=== PATIENT | male | born 1950 | race Caucasian/White ===

== ENCOUNTER 2021-01-10 08:18 | Outpatient (REF) | payer MEDICARE, BC, SELFPAY ==
[2021-01-10 10:50] LABS: MANUAL DIFF FLAG NO
[2021-01-10 10:52] LABS: Basophils Percent Auto 0.5 % (0-2); Eosinophils Absolute Auto 0.4 X10*3/uL (0.0-0.4); Eosinophils Percent Auto 6.9 % (0-4); Hematocrit 45.4 % (42.0-52.0); Hemoglobin 15.5 g/dl (14.0-18.0); Imm Gran Abs Auto 0.03 X10*3/uL (0.00-0.03); Imm Gran Pct Auto 0.5 % (0.0-0.4); Lymphocytes Absolute Auto 1.5 X10*3/uL (1.2-4.9); Lymphocytes Percent Auto 26.3 % (20-40); Mean Corpuscular HGB Conc 34.1 g/dl (31.0-36.0); Mean Corpuscular Hemoglobin 29.8 pg (27.0-33.0); Mean Corpuscular Volume 87.1 fL (80.0-98.0); Mean Platelet Volume 9.9 fL (9.4-12.4); Monocytes Absolute Auto 0.7 X10*3/uL (0.1-1.2); Neutrophils Percent Auto 53.8 % (45-73); Platelet Count 241 X10*3/uL (160-400); Red Blood Count 5.21 X10*6/uL (4.60-5.80); Red Cell Distribution Width 13.3 % (11.0-16.0); White Blood Count 5.8 X10*3/uL (4.8-10.8)
[2021-01-10 11:28] LABS: Alanine Aminotransferase 17 U/L (0-40); Albumin Level 4.1 g/dL (3.5-5.0); Alkaline Phosphatase 84 U/L (39-117); Anion Gap 12 (12-20); Aspartate Amino Transferase 19 U/L (5-37); Bilirubin Total 0.6 mg/dL (0.0-1.0); Blood Urea Nitrogen 11 mg/dL (9-16); Calcium 8.8 mg/dL (8.4-10.2); Carbon Dioxide 26 mmol/L (22-29); Chloride 106 mmol/L (96-108); Cholesterol 165 mg/dL; Estimated Glomerular Filt Rate > 60; Glucose Fasting 97 mg/dL (60-99); HDL Cholesterol 43 mg/dL; LDL Cholesterol Calculated 109 mg/dl; Potassium 4.6 mmol/L (3.3-5.1); Sodium 139 mmol/L (135-145); Total Protein 6.3 g/dL (6.5-8.0); Triglycerides 65 mg/dL
== END 2021-01-10 08:19 | disposition home or self-care (01) ==
LOC: HO.MANLDS 08:18
PROVIDERS: PCP Physician Assistant; Visit Provider Physician Assistant
DX: Z00.00 Encounter for general adult medical examination without abnormal findings (principal)
CPT/HCPCS: 36415; 80053; 80061; 85025

== ENCOUNTER 2021-12-19 14:22 | Outpatient (REF) | payer MEDICARE, BC, SELFPAY ==
[2021-12-19 18:19] LABS: MANUAL DIFF FLAG NO
[2021-12-19 18:38] LABS: Alanine Aminotransferase 15 U/L (0-40); Albumin Level 4.1 g/dL (3.5-5.0); Alkaline Phosphatase 80 U/L (39-117); Anion Gap 15 (12-20); Aspartate Amino Transferase 18 U/L (5-37); Bilirubin Total 0.7 mg/dL (0.0-1.0); Blood Urea Nitrogen 14 mg/dL (9-16); Calcium 9.6 mg/dL (8.4-10.2); Carbon Dioxide 24 mmol/L (22-29); Chloride 105 mmol/L (96-108); Cholesterol 175 mg/dL; Estimated Glomerular Filt Rate > 60; Glucose Random 130 mg/dL (60-115); HDL Cholesterol 44 mg/dL; LDL Cholesterol Calculated 102 mg/dl; Potassium 4.1 mmol/L (3.3-5.1); Sodium 140 mmol/L (135-145); Total Protein 6.4 g/dL (6.5-8.0); Triglycerides 147 mg/dL
[2021-12-19 18:40] LABS: Basophils Absolute Auto 0.1 X10*3/uL (0.0-0.2); Basophils Percent Auto 0.7 % (0-2); Eosinophils Absolute Auto 0.1 X10*3/uL (0.0-0.4); Eosinophils Percent Auto 1.8 % (0-4); Hematocrit 45.6 % (42.0-52.0); Hemoglobin 15.8 g/dl (14.0-18.0); Imm Gran Abs Auto 0.07 X10*3/uL (0.00-0.03); Lymphocytes Absolute Auto 1.4 X10*3/uL (1.2-4.9); Lymphocytes Percent Auto 19.6 % (20-40); Mean Corpuscular HGB Conc 34.6 g/dl (31.0-36.0); Mean Corpuscular Hemoglobin 29.3 pg (27.0-33.0); Mean Corpuscular Volume 84.6 fL (80.0-98.0); Mean Platelet Volume 11.2 fL (9.4-12.4); Monocytes Absolute Auto 0.5 X10*3/uL (0.1-1.2); Monocytes Percent Auto 7.1 % (2-11); Neutrophils Absolute Auto 5.1 x10*3/uL (2.0-8.3); Neutrophils Percent Auto 69.8 % (45-73); Platelet Count 237 X10*3/uL (160-400); Red Blood Count 5.39 X10*6/uL (4.60-5.80); Red Cell Distribution Width 12.8 % (11.0-16.0); White Blood Count 7.4 X10*3/uL (4.8-10.8)
== END 2021-12-19 14:23 | disposition home or self-care (01) ==
LOC: HO.MANLDS 14:22
PROVIDERS: Internal Medicine; Visit Provider Physician Assistant
DX: Z00.00 Encounter for general adult medical examination without abnormal findings (principal)
CPT/HCPCS: 36415; 80053; 80061; 85025

== ENCOUNTER 2023-01-22 08:10 | Outpatient (REF) | payer MEDICARE, BC, SELFPAY ==
[2023-01-22 13:39] LABS: MANUAL DIFF FLAG NO
[2023-01-22 13:53] LABS: Basophils Absolute Auto 0.1 X10*3/uL (0.0-0.2); Basophils Percent Auto 0.8 % (0-2); Eosinophils Absolute Auto 0.4 X10*3/uL (0.0-0.4); Eosinophils Percent Auto 5.9 % (0-4); Hematocrit 42.3 % (42.0-52.0); Hemoglobin 13.5 g/dl (14.0-18.0); Imm Gran Abs Auto 0.03 X10*3/uL (0.00-0.03); Imm Gran Pct Auto 0.5 % (0.0-0.4); Lymphocytes Absolute Auto 1.6 X10*3/uL (1.2-4.9); Lymphocytes Percent Auto 25.5 % (20-40); Mean Corpuscular HGB Conc 31.9 g/dl (31.0-36.0); Mean Corpuscular Volume 81.3 fL (80.0-98.0); Mean Platelet Volume 10.7 fL (9.4-12.4); Monocytes Absolute Auto 0.7 X10*3/uL (0.1-1.2); Monocytes Percent Auto 10.5 % (2-11); Neutrophils Absolute Auto 3.6 x10*3/uL (2.0-8.3); Neutrophils Percent Auto 56.8 % (45-73); Platelet Count 303 X10*3/uL (160-400); Red Cell Distribution Width 13.5 % (11.0-16.0); White Blood Count 6.3 X10*3/uL (4.8-10.8)
[2023-01-22 14:30] LABS: Alanine Aminotransferase 12 U/L (0-40); Alkaline Phosphatase 67 U/L (39-117); Anion Gap 9 (12-20); Aspartate Amino Transferase 19 U/L (5-37); Bilirubin Total 0.5 mg/dL (0.0-1.0); Blood Urea Nitrogen 13 mg/dL (9-16); Calcium 9.5 mg/dL (8.4-10.2); Carbon Dioxide 28 mmol/L (22-29); Chloride 105 mmol/L (96-108); Cholesterol 175 mg/dL (<200); Estimated Glomerular Filt Rate > 60; Ferritin 13 ng/mL (20-250); Glucose Random 100 mg/dL (60-115); HDL Cholesterol 46 mg/dL (>40); Iron 42 mcg/dL (45-160); LDL Cholesterol Calculated 107 mg/dL (<100); Percent Iron Saturation 11 % (15-50); Sodium 138 mmol/L (135-145); Total Iron Binding Capacity 375 mcg/dL (228-428); Total Protein 6.7 g/dL (6.5-8.0); Triglycerides 113 mg/dL (<150); Unsaturated Iron Binding 333 ug/dL
[2023-01-22 14:48] LABS: Folate 8.5 ng/mL (> or = 4.0); Prostate Specific Antigen 1.25 ng/mL (<0.05-4.0); Vitamin B12 442 pg/mL (200-900)
== END 2023-01-22 08:11 | disposition home or self-care (01) ==
LOC: HO.MANLDS 08:10
PROVIDERS: Visit Provider Physician Assistant
DX: Z00.00 Encounter for general adult medical examination without abnormal findings (principal); Z12.5 Encounter for screening for malignant neoplasm of prostate; R55 Syncope and collapse
CPT/HCPCS: 36415; 80053; 80061; 82607; 82728; 82746; 83540; 84153; 85025

== ENCOUNTER 2023-04-15 15:19 | Outpatient (REF) | payer MEDICARE, BC, SELFPAY | END 2023-04-15 15:20 | disposition home or self-care (01) | LOC: HO.LNP 15:19 | PROVIDERS: Visit Provider Physician Assistant | DX: K13.79 Other lesions of oral mucosa (principal) | CPT/HCPCS: 87070; 87205 ==

== ENCOUNTER 2024-01-31 08:32 | Outpatient (REF) | payer MEDICARE, BC, SELFPAY ==
[2024-01-31 13:07] LABS: MANUAL DIFF FLAG NO
[2024-01-31 13:18] LABS: Basophils Absolute Auto 0.1 X10*3/uL (0.0-0.2); Basophils Percent Auto 0.8 % (0-2); Eosinophils Absolute Auto 0.9 X10*3/uL (0.0-0.4); Eosinophils Percent Auto 13.1 % (0-4); Hemoglobin 16.4 g/dl (14.0-18.0); Imm Gran Abs Auto 0.03 X10*3/uL (0.00-0.03); Imm Gran Pct Auto 0.5 % (0.0-0.4); Lymphocytes Absolute Auto 1.4 X10*3/uL (1.2-4.9); Lymphocytes Percent Auto 21.1 % (20-40); Mean Corpuscular HGB Conc 34.9 g/dl (31.0-36.0); Mean Corpuscular Volume 85.9 fL (80.0-98.0); Mean Platelet Volume 10.2 fL (9.4-12.4); Monocytes Absolute Auto 0.7 X10*3/uL (0.1-1.2); Monocytes Percent Auto 10.2 % (2-11); Neutrophils Absolute Auto 3.5 x10*3/uL (2.0-8.3); Neutrophils Percent Auto 54.3 % (45-73); Platelet Count 204 X10*3/uL (160-400); Red Blood Count 5.47 X10*6/uL (4.60-5.80); Red Cell Distribution Width 12.8 % (11.0-16.0); White Blood Count 6.5 X10*3/uL (4.8-10.8)
[2024-01-31 13:32] LABS: Estimated Average Glucose 120 mg/dL; Hemoglobin A1C 165.1221 umol/L; Hemoglobin A1c % 5.8 % (<6.0); Total Hemoglobin (HGBA1C) 4176.8867 umol/L
[2024-01-31 13:40] LABS: Alanine Aminotransferase 22 U/L (0-40); Albumin Level 4.1 g/dL (3.5-5.0); Anion Gap 11 (12-20); Aspartate Amino Transferase 26 U/L (5-37); Bilirubin Total 0.9 mg/dL (0.0-1.0); Blood Urea Nitrogen 11 mg/dL (9-16); Calcium 9.6 mg/dL (8.4-10.2); Carbon Dioxide 26 mmol/L (22-29); Chloride 105 mmol/L (96-108); Cholesterol 170 mg/dL (<200); Estimated Glomerular Filt Rate > 60; Glucose Random 112 mg/dL (60-115); HDL Cholesterol 41 mg/dL (>40); Sodium 138 mmol/L (135-145); Total Protein 6.5 g/dL (6.5-8.0); Triglycerides 123 mg/dL (<150)
[2024-01-31 13:41] LABS: Alkaline Phosphatase 73 U/L (39-117); LDL Cholesterol Calculated 105 mg/dL (<100)
[2024-01-31 13:48] LABS: Prostate Specific Antigen 0.74 ng/mL (<0.05-4.0)
== END 2024-01-31 08:33 | disposition home or self-care (01) ==
LOC: HO.MANLDS 08:32
PROVIDERS: Visit Provider Physician Assistant
DX: Z00.00 Encounter for general adult medical examination without abnormal findings (principal)
CPT/HCPCS: 36415; 80053; 80061; 83036; 84153; 85025

== ENCOUNTER 2025-02-12 09:04 | Outpatient (REF) | payer MEDICARE, BC, SELFPAY ==
--- OUTSIDE RECORDS SUMMARY | 2025-02-12 09:40 | XMS_ITS | Encounter Summary ---
Author Organization [facility] Address [address] [place] [address] [place] [address] Phone Care Team Providers Care Cashiers Bussers Food Runners Name Role Phone Reji Paul DO Primary Care Provider [phone] Encounter Details Date Type Department Care Team (Latest Contact Info) Description 09/22/2019 Transcribe Orders [address] [address] Elias Hendrickson MD [address] [place] [address], [address] [address] [email or web address] Nodular prostate without urinary obstruction (Primary Dx) Social History Tobacco Use Types Packs/Day Years Used Date Smoking Tobacco: Never Smokeless Tobacco: Never Sex and Gender Information Value Date Recorded Sex Assigned at Not on file Legal Sex Male 9:59 PM EDT Gender Identity Not on file Sexual Orientation Not on file documented as of this encounter Plan of Treatment Upcoming Encounters Date Type Department Care Team (Late st Contact Info) Description 03/18/2025 2:00 PM EST Office Visit [facility] [address] [place] [address] Unknown, Unknown, Caridad Jensen PA-C [address] [id number] documented as of this encounter Results * PSA (screening) (09/22/2019 9:08 AM EDT) PSA 1.01 0 - 4.00 ng/mL [facility] Blood 09/22/2019 9:08 AM EDT 09/22/2019 12:01 PM EDT us Elias Hendrickson MD LAB BLOOD BKR ORDERABLES Final Result Performing Organization Address City/State/[facility] Co de Phone Number [facility] [address] [place] [address] documented in this encounter Visit Diagnoses Diagnosis Nodular prostate without urinary obstruction- Primary documented in this encounter Care Teams Cashiers Bussers Food Runners Relationship Specialty Start Date End Date Reji Paul DO [email or web address] PCP - General Internal Medicine 12/19/18 documented as of this encounter Additional Source Comments The information contained in this document represents components of the legal health record. It is not the complete legal health record.[facility]
--- OUTSIDE RECORDS SUMMARY | 2025-02-12 09:40 | XMS_ITS | Encounter Summary ---
Author Organization [facility] Address [address] [place] [address] Phone Care Team Providers Care Laborer Orchard Name Role Phone Reji Paul DO Primary Care Provider [phone] Encounter Details Date Type Department Care Team (Latest Contact Info) Description 05/11/2021 Ancillary Orders Non-Invasive Cardiology [address] [place] [address] Tricia Maynard PA 6 [facility] [place] [address] Abnormal cardiovascular stress test Social History Tobacco Use Types Packs/Day Years [...] Description 03/18/2025 2:00 PM EST Office Visit [facility] [address] [place] [address] Unknown, Unknown, Caridad Jensen PA-C [address] [address] documented as of this encounter Results * NC Stress Result for Nuclear Stress Test (05/11/2021 11:25 AM EST) Max BP Systolic 184 mmHg [facility] Max BP Diastolic 66 mmHg [facility] Max HR 122 BPM [facility] Resting HR 61 BPM [facility] Resting BP Systolic 152 mmHg [facility] Resting BP Diastolic 70 mmHg [facility] Peak METS 7.4 METS [facility] Peak HR 120 BPM [facility] Anatomical Region Laterality Modality Heart Other 05/11/2021 10:3 3 AM EST 05/11/2021 11:23 AM EST Narrative 05/11/2021 11:52 AM EST Response to Stress The patient exercised for minutes seconds, achieving 7.4 METS at peak exercise. Baseline blood pressure was 152/70 mmHg, and baseline heart rate was 61 bpm. The patient achieved a peak heart rate of 120 bpm, which is% of their maximum predicted heart rate. Report: Pt exercised for 11:06 min on a KEATON protocol achieving 13.10 METS. Test terminated due to fatigue. Baseline resting HR was 57 bpm. Max heart rate achieved was 122 bpm (80% MPHR). Patient did not want Lexiscan that was recommended and ordered as he was not able to meet MPHR at his ETT. Did regular Nuke per patient request only made it to 80% before injection. 1. EKG - Baseline EKG showed sinus bradycardia 57 bpm with non-specific ST/T wave abnormalities and LVH. During exercise, there were up to 1.[address]-T wave depressions in the inferolateral leads and V4-V6 suggestive of ischemia. 2. SYMPTOMS - No chest pain. 3. EXERCISE PHYSIOLOGY - Normal BP response to exercise. High functional capacity for age. 4. ARRHYTHMIAS - Occasional isolated PVC's. Conclusion - There were up to 1.[address]-T wave depressions in the inferolateral leads and V4-V6 suggestive of ischemia without symptoms concerning for angina. Nuclear images pending and will be reported separately. Naz Marcelo, SELIN, SALES ASSOCIATE-BC with Dr. Rodríguez. us Tricia REILLY CV NM CARDIAC Final Resul t documented in this encounter Visit Diagnoses Diagnosis Abnormal cardiovascular stress test Other nonspecific abnormal cardiovascular system function study Abnormal cardiovascular stress test Other nonspecific abnormal cardiovascular system function study documented in this encounter Care Teams Laborer Orchard Relationship Specialty Start Date End Date Reji Paul DO [email or web address] PCP - General Internal Medicine 12/19/18 documented as of this encounter Additional Source Comments The information contained in this document represents components of the legal health record. It is not the complete legal health record.[facility]
--- OUTSIDE RECORDS SUMMARY | 2025-02-12 09:40 | XMS_ITS | Encounter Summary ---
Author Organization [facility] Address [address] [place] [address] [place] [phone] Phone Care Team Providers Care Air Traffic Control Operator Name Role Phone Reji Paul Primary Care Provider [phone] Reason for Referral * MRI/CAT Scan - Closed Specialty Diagnoses / Procedures Referred By Contjose t Referred To Contact Radiology Diagnoses Abnormal cardiovascular stress test Procedures NC Myocardial Perfusion Pharmacologic Stress Multiple Tricia Maynard PA Phone: tel: fax: Referral ID Status Reason Start Date Expiration Date Visits Re quested Visits Authorized [id number] Closed 04/28/2021 04/28/2022 4 4 Encounter Details Date Type Department Care Team (Latest Contact Info) Description 04/28/2021 Transcribe Orders Virtual Department [address] [place] [address] Tricia Maynard PA [address] [place] [address] [place] [address] Abnormal cardiovascular stress test (Primary Dx) Social History Tobacco Use Types [...] Description 03/18/2025 2:00 PM EST Office Visit [facility] [address] [place] [address] Unknown, Unknown, Caridad Jensen PA-C 10 [facility] [address] [place] [address] .[employer] documented as of this encounter Results * NC Myocardial Perfusion Pharmacologic Stress Multiple (05/11/2021 11:45 AM EST) Anatomical Region Laterality Modality Heart, Vascular Nuclear Medicine 05/11/2021 12:2 5 PM EST Impressions 05/11/2021 12:28 PM EST Suboptimal heart rate response decreasing exam sensitivity for detecting ischemia. Normal exam. LVEF of 73%. Narrative 05/11/2021 12:28 PM EST COMPARISON: None. DOSE: 9.5 mCi at rest and 30.4 mCi at stress of Tc99m Sestamibi TECHNIQUE: Patient underwent an exercise stress test per Abner protocol reaching 80% of MHR. Patient refused Lexiscan stress test. EKG changes were suggestive of ischemia. No chest pain. NUCLEAR MEDICINE CARDIAC SPECT FINDINGS: Left ventricle is normal in size from stress to rest. No perfusion defects. Normal wall motion and thickening with an LVEF of 73%. T.I.D. Ratio: 0.95 Procedure Note Meliton Palmer MD - 05/11/2021 COMPARISON: None. DOSE: 9.5 mCi at rest and 30.4 mCi at stress of Tc99m Sestamibi TECHNIQUE: Patient underwent an exercise stress test per Abner protocolreaching 80% of MHR. Patient refused Lexiscan stress test. EKG changeswere suggestive of ischemia. No chest pain. NUCLEAR MEDICINE CARDIAC SPECT FINDINGS: Left ventricle is normal in size from stress to rest. No perfusiondefects. Normal wall motion and thickening with an LVEF of 73%. T.I.D. Ratio: 0.95 IMPRESSION: Suboptimal heart rate response decreasing exam sensitivity for detectingischemia. Normal exam. LVEF of 73%. Tricia REILLY CV NM CARDIAC Final Resul t documented in this encounter Visit Diagnoses Diagnosis Abnormal cardiovascular stress test- Primary Other nonspecific abnormal cardiovascular system function study Abnormal cardiovascular stress test Other nonspecific abnormal cardiovascular system function study documented in this encounter Care Teams Air Traffic Control Operator Relationship Specialty Start Date End Date Reji Paul DO [email or web address] PCP - General Internal Medicine 12/19/18 documented as of this encounter Additional Source Comments The information contained in this document represents components of the legal health record. It is not the complete legal health record.[facility]
--- OUTSIDE RECORDS SUMMARY | 2025-02-12 09:41 | XMS_ITS | Data Portability ---
Author Organization [facility], Telehealth Patient Home Address [address] [place] [address] Assessment Encounter Date Assessment Date Assessment LastModified by Organization Details LastModified Time 08/05/2024 08/05/2024 Patient presented for medication refill. Patient tolerating medication well at current dose without adverse effects. Refilled as below. Discussed plan with patient, who expressed understanding . Follow up as noted below. [email or web address] Not available 08/05/2024 12:28:45 Plan of Treatment Reminders Order Date Submit Date Provider Last Modified By Organization Details Last Modified Time Details Appointments ANNUAL EXAM 2025 02:15P MELBA OLIVER Not available Not available Not available Lab PSA, serum or plasma 2024 025 [facility], [address] [place] [address], [id number], 01/29/2025 14:55:36 CMP, serum or plasma 2024 025 [facility], [address] [place] [address], [id number], 01/29/2025 14:55:37 CBC w/ auto diff 2024 025 [facility], [address] [place] [address], [id number], 01/29/2025 14:55:36 lipid panel, blood 2024 025 [facility], [address] [place] [address], [id number], 01/29/2025 14:55:37 hemoglobi n A1c, QN, blood 2024 025 [facility], [address] [place] [address], [place], [id number], 01/29/2025 14:55:36 Referral None recorded. Procedures None recorded. Surgeries None recorded. Imaging None recorded. Medication Orders triamcino lone acetonide 0.1 % topical cream 2024 025 [facility][id number], [address], [place], [id number], 10/19/2024 10:54:23 olmesarta n 20 mg tablet 2024 025 [facility] #[id number], [address], [place], [id number], 08/19/2024 14:48:06 olmesarta n 20 mg tablet 2024 025 [facility] #[id number], [address], [place], [id number], 08/05/2024 12:38:57 Patient TargetsNo targets recorded. Patient InstructionsNo instructions recorded. Reason for Referral None Reported. Results Created Date Observation Date Name Description Value Unit Range Abnormal Flag Note LastModifiedBy Organization Detail LastModifiedTime Result Notes None recorded. Problems Name Problem SNOMED Code Status Onset Date Resolution Date Notes Provider Name and Address Organization Details Recorded Time [facility] hyperten phillip 77179712 Active 2017 Not Available [facility] 12:46:22 Impotenc e Active 2017 Not Available [facility] 12:46:22 Mixed hyperlip idemia 616406644 Active 2017 Not Available [facility] 12:46:22 Prostate nodule 59675998866 9109 Active 2017 saw urology 3mm L medial lobe needs PSA every year to monitor MELBA EDWARDS [address] [place], [address], [facility] 2 13:58:39 Systolic murmur 67936273 Active 2017 Per cardio 2 RICS to LSB Not Available [facility] 2 12:46:22 Migraine 43450379 Active 2017 1982 Not Available [facility] 2 12:46:22 Hemorrho ids 21960910 Active 2017 Not Available [facility] 2 12:46:22 Herpes zoster 8929911 Active 2017 1998 Not Available [facility] 2 12:46:22 Pneumoni a 069999129 Active 2017 1970 Not Available [facility] 2 12:46:22 Gastroes ophageal reflux disease 973488739 Active 2021 MELBA EDWARDS [address] [place], [address], [facility] 2 13:54:54 Multiple benign melanocy tic nevi 789478397 Active 2022 MELBA EDWARDS [address] [place], [address], [facility] 3 13:54:42 Syncope 354352762 Active 2022 MELBA EDWARDS [address] [place], [address], [facility] 3 13:59:57 Sore mouth 935614059 Active 2023 MELBA EDWARDS [address] [place], [address], [facility] 4 12:07:41 Psoriasi s 9422351 Active 2023 MELBA EDWARDS [address] [place], [address], [facility] 4 14:09:06 Contact dermatit is caused by urushiol from [facility] liz 488184832 Active 2023 MELBA EDWARDS [address] [place] [address], [address], [facility] 4 11:27:16 Generali kyle rudy 946334006 Active 2023 MELBA EDWARDS [address] [place] [address], [address], [facility] 4 12:03:37 Pseudomo wayne aerugino sa follicul itis 197171015 Active 2023 MELBA EDWARDS [address] [place] [address], [address], [facility] 4 14:20:14 Hidraden itis suppurat niesha 47294473 Active 2023 MELBA EDWARDS [address] [place] [address], [address], [facility] 4 14:21:49 Gastro-e sophagea l reflux disease with esophagi tis 623136207 Active 2024 MELBA EDWARDS [address] [place] [address], [address], [facility] 5 14:57:09 Chronic constipa tion 866990190 Active 2024 MELBA EDWARDS [address] [place] [address], [address], [facility] 5 10:51:44 Seborrhe ic keratosi s 091018713 Active 2024 MELBA EDWARDS [address] [place] [address], [address], [facility] 5 10:52:26 Notes:Exertional abgina Problem Notes None recorded. Procedures Surgical History Date Name Laterality Status Provider Name and Address Organization Details Recorded Time 11/01/19 16 colonoscopic snare polypectomy of colon completed Adelia Foy [facility] 06/13/2018 12:24:32 11/01/19 16 Colonoscopy completed Adelia Foy [facility] 06/13/2018 12:22:42 Imaging Results None recorded. Procedure Notes None recorded. Medical Equipment None Reported. Allergies Allergen ID Allergen Name Allergen Category Reaction Reaction Severity Criticality Documentation Date Start Date Code Code System Note Provider Name and Address Organization Details Recorded Time 2175 lisinopri l medicatio n Not available Not available Not available 11/01/2017 67933 RxNorm Adelia kearney [facility] 8 08:20:35 2176 Product containin g penicilli n (product) medicatio n Not available Not available Not available 11/01/2017 47874 8001 SNOMED Adelia kearney [facility] 8 08:20:42 Medications Name Sig Start Date Stop Date Status Note LastModified by Organization Details LastModified Time nystatin 100,000 unit/mL oral suspension SHAKE LIQUID AND TAKE 5 ML BY MOUTH FOUR TIMES DAILY FOR 7 DAYS DIRECTED 07/01 completed Not Available Not Available Not Available prednisone 10 mg tablet TAKE 4 TABLETS BY MOUTH ONCE DAILY X2DAYS TAKE 3 TABLETS DAILY X2DAYS 2 TABLETS DAILY X2DAYS 1 TABLET DAILY X2DAYS 12/26 completed Not Available Not Available Not Available azithromyci n 250 mg tablet TAKE 2 TABLETS (500 MG) BY ORAL ROUTE ONCE DAILY FOR 1 DAY THEN 1 TABLET (250 MG) BY ORAL ROUTE ONCE DAILY FOR 4 DAYS 06/04 completed Not Available Not Available Not Available tizanidine 4 mg tablet TAKE 1 TABLET BY MOUTH EVERY 6 HOURS FOR 14 DAYS NEEDED 01/09 completed Not Available Not Available Not Available famotidine 40 mg tablet TAKE 1 TABLET BY MOUTH DAILY AT BEDTIME active Not Available Not Available No t Available prednisone 20 mg tablet Take 1 tablet every day by oral route for 14 days. 08/05 completed Not Available Not Available Not Available clobetasol 0.05 % topical cream APPLY TOPICALLY TO THE AFFECTED AREA TWICE DAILY FOR 1 TO 2 WEEKS NEEDED FOR ECZEMA. DO NOT USE ON THE FACE OR SKIN FOLDS active Not Available Not Available No t Available ciprofloxac in 500 mg tablet TAKE 1 TABLET BY MOUTH EVERY 12 HOURS FOR 10 DAYS DIRECTED 01/26 completed Not Available Not Available Not Available triamcinolo ne acetonide 0.1 % topical cream APPLY THIN LAYER TOPICALLY TO THE AFFECTED AREA TWICE DAILY active Not Available Not Available No t Available benzonatate 100 mg capsule 08/17 completed Not Available Not Available Not Available doxycycline monohydrate 100 mg capsule TAKE 2 CAPSULES BY MOUTH ONCE FOR 1 DOSE. MAY TAKE AN ADDITIONA L 2 CAPSULES BY MOUTH ONCE FOR 1 DOSE FOR ADDITIONA L TICK BITES IN THE FUTURE 12/26 completed Not Available Not Available Not Available erythromyci n 5 mg/gram (0.5 %) eye ointment 08/17 completed Not Available Not Available Not Available tobramycin 0.3 % eye drops INSTILL 1 DROP IN EACH EYE EVERY 4 HOURS 07/01 completed Not Available Not Available Not Available Guaifenesin AC 10 mg-100 mg/5 mL oral liquid Take 10 mL every 4 hours by oral route for 5 days. 08/17 completed Not Available Not Available Not Available omeprazole 20 mg capsule,del ayed release TAKE 1 CAPSULE BY MOUTH EVERY DAY 08/05 completed Not Available Not Available Not Available bisacodyl 5 mg tablet,cruzito yed release TAKE 4 TABLETS BY MOUTH THE DAY BEFORE PROCEDURE 08/05 completed Not Available Not Available Not Available albuterol sulfate HFA 90 mcg/actuati on aerosol inhaler Inhale 2 puffs every 4 hours by inhalatio n route. 08/17 completed Not Available Not Available Not Available olmesartan 20 mg tablet TAKE 2 TABLETS BY MOUTH EVERY DAY DIRECTED active Not Available Not Available No t Available IBU-200 2 tablets 2 or 3 times a day 06/28 completed Not Available Not Available Not Available potassium qd active Not Available Not Marah ilable Not Available Vitamin D3 active Not Available Not Av ailable Not Available B6-500 09/16 completed Not Available Not Available Not Available GaviLyte-G 236 gram-22.74 gram-6.74 gram-5.86 gram oral solution MIX AND DRINK 4000 ML DIRECTED 08/05 completed Not Available Not Available Not Available Prevnar 13 (PF) 0.5 mL intramuscul ar syringe 11/01 completed Not Available Not Available Not Available Antiseptic Skin Cleanser (chlorhexid ine) 4 % liquid APPLY TOPICALLY TO THE AFFECTED AREA EVERY DAY FOR 10 DAYS DIRECTED 08/05 completed Not Available Not Available Not Available Calcium Magnesium with zinc active Not Available Not Available Not Available Shingrix (PF) 50 mcg/0.5 mL intramuscul ar suspension, kit 11/01 completed Not Available Not Available Not Available Fluzone High-Dose 8921-9511 (PF) 180 mcg/0.5 mL intramuscul ar syringe 06/16 completed Not Available Not Available Not Available Fluad 2018-20 65yr up(PF)45 mcg(15 mcgx3)/0.5 mL intramuscul ar syringe 08/17 completed Not Available Not Available Not Available Fluzone High-Dose Quad 2019- (PF) 240 mcg/0.7 mL IM syringe ADM 0.7ML IM UTD 06/28 completed Not Available Not Available Not Available BinaxNOW COVID-19 Ag Self Test kit TEST DIRECTED TODAY 07/01 completed Not Available Not Available Not Available Vitals Date Recorded Body height Body mass index (BMI) Body weight Heart rate Oxygen saturation Systolic And Diastolic Provider Name and Address Organization Details Last Updated DateTime 5 165.1 cm 24.9 kg/m2 24030.1 4 g 59 /min 95 % 132/82 mm[Hg] Kylee Helton [facility] 5 11:58:28 Date Recorded Body height Heart rate Oxygen saturation Systolic And Diastolic Provider Name and Address Organization Details Last Updated DateTime 08/19/2024 165.1 cm 60 /min 98 % 132/78 mm[Hg] Kylee Helton [facility] 08/19/2024 14:39:41 Date Recorded Body height Body mass index (BMI) Body weight Oxygen saturation Heart rate Systolic And Diastolic Provider Name and Address Organization Details Last Updated DateTime 5 165.1 cm 24.8 kg/m2 81600.9 8 g 98 % 74 /min 128/86 mm[Hg] IFEANYI AGARWAL [facility] 5 10:25:25 Date Recorded Body height Body mass index (BMI) Body weight Heart rate Oxygen saturation Systolic And Diastolic Provider Name and Address Organization Details Last Updated DateTime 5 165.1 cm 25.2 kg/m2 31879.9 6 g 55 /min 97 % 118/74 mm[Hg] Kylee Helton [facility] 5 10:39:45 Date Recorded Body height Body mass index (BMI) Body weight Oxygen saturation Heart rate Systolic And Diastolic Provider Name and Address Organization Details Last Updated DateTime 5 165.1 cm 25.3 kg/m2 56650.6 8 g 98 % 68 /min 122/72 mm[Hg] [facility] 5 14:26:06 Social History Question Answer Notes LastModified by Organizat ion Details LastModified Time Tobacco Smoking Status Never Smoker Not Available [facility] 01/12/2020 03:36:24 What Was The Date Of Your Most Recent Tobacco Screening? 01/29/2025 [email or web address] Information not available 01/29/2025 Sex: Unknown Functional Status None recorded. Mental Status None recorded. Family History Relationship Description Onset Age of this Age Resolved Age Notes LastModified by Organization Details LastModified Time Father Family history of malignant neoplasm Colon CA [email or web address] Not available 01/29/2025 14:02:11 Father Diabetes mellitus [email or web address] Not available 2018 12:19:38 Father Essential hypertension Not available 01/29/2025 14:02:11 Mother Family history of malignant neoplasm Breast CA [email or web address] Not available 01/29/2025 14:02:11 Mother Diabetes mellitus [email or web address] Not available 2018 12:19:38 Mother Essential hypertension [email or web address] Not available 01/29/2025 14:02:11 Medical History Condition Response Coronary Artery Disease N Other N Gout N Kidney Stones N Blood Diseases N Hyperthyroidism N Breast Cancer N Blood Transfusion N Depression N COPD N Lung Disease N Defects or Inherited Disease N Difficulty Swallowing N Anesthesia Complications N Anxiety Disorder N Muscle, Joint, or Bone Problems N Obesity N Vision or Eye Problems N Arthritis N Polyps N Infertility N Mental Disorder N Cancer N Varicosities N Stroke N Endometriosis N Bladder or Kidney Problems N High Cholesterol N Liver Disease N Headaches N Fibromyalgia N Kidney Disease N Allergies/Hayfever N Heart Problems N Hospitalizations N Thyroid Problems N GI Problems N Skin Problems N Eating Disorder N Anemia N MRSA exposure N Constipation N Mental Illness N Ovarian Cancer N Diabetes N Seizures/Epilepsy N Tuberculosis N Congestive Heart Failure (CHF) N Eczema N Diverticulitis N Abuse/Domestic Violence N Asthma N Reflux/GERD N Hepatitis N Heart Disease N Pulmonary Embolism N Hypertension N Chicken Pox Y Autism Spectrum Disorder (ASD) N Osteoporosis N Thrombophilias N Immunizations Vaccine Type Date Status Note Provider Nam e and Address Organization Details Recorded Time COVID-19, mRNA, LNP-S, PF, 30 mcg/0.3 mL dose 12/06/19 21 completed Not Available [facility] 02/12/2021 15:43:37 Influenza, split virus, quadrivalent, preservative 12/06/19 21 completed Not Available [facility] 02/12/2021 15:43:37 COVID-19, mRNA, LNP-S, PF, 30 mcg/0.3 mL dose 07/14/19 22 completed Ginette kearney [facility] 07/14/2021 14:17:35 Influenza, split virus, quadrivalent, preservative 12/25/19 18 completed Not Available [facility] 02/12/2021 15:43:37 Influenza, split virus, quadrivalent, preservative 11/21/19 22 completed Raven kearney [facility] 01/09/2022 13:39:19 COVID-19, mRNA, LNP-S, PF, 30 mcg/0.3 mL dose 12/26/19 22 completed Raven kearney [facility] 01/09/2022 13:39:50 Tdap 03/11/19 23 completed MELBA EDWARDS [address] [place] [address], [address] 01/16/2023 13:41:22 zoster live 06/06/19 18 completed Not Available [facility] 02/12/2021 15:43:37 Pneumococcal conjugate PCV 13 06/06/19 18 completed Not Available [facility] 02/12/2021 15:43:37 Influenza, split virus, quadrivalent, preservative 02/21/20 17 completed Not Available [facility] 02/12/2021 15:43:37 Td(adult) unspecified formulation 06/19/19 06 completed Not Available [facility] 02/12/2021 15:43:37 pneumococcal polysaccharide PPV23 06/15/19 19 completed Not Available [facility] 02/12/2021 15:43:37 Influenza, split virus, quadrivalent, preservative 12/31/19 19 completed Not Available [facility] 02/12/2021 15:43:37 Influenza, split virus, quadrivalent, preservative 12/11/19 20 completed Not Available [facility] 02/12/2021 15:43:37 COVID-19, mRNA, LNP-S, PF, 30 mcg/0.3 mL dose 05/14/19 21 completed Not Available [facility] 02/12/2021 15:43:37 COVID-19, mRNA, LNP-S, PF, 30 mcg/0.3 mL dose 04/22/19 21 completed Not Available [facility] 02/12/2021 15:43:37 Past Encounters Encounter ID Performer Location Encounter Start Date Encounter Closed Date Diagnosis/Indication Diagnosis SNOMED-CT Code Diagnosis ICD10 Code Diagnosis IMO Codes Diagnosis Note [id number] Reji Paul DO [facility] [address] [facility],[place] [address] 11/01/2017 13:26:28 11/01/2017 14:14:31 Acute low back pain 923500572 M54.5 right si joint ttp likely arthritis/ inflammati on NSAIDS, REST, ICE Essential hypertension 98027715 I10 stable with exercise routine [id number] Reji Paul DO [facility] [address] [facility],[place] [address] 06/16/2018 11:38:44 06/16/2018 12:48:47 Adult health examination 790977517 Z00.01 Active or passive immunization 861153400 Z23 up to date Prostate nodule 60001741 01 30840 N40.3 wait until Saturday for blood work Systolic murmur 95036042 R01.[place] [id number] Reji Paul DO [facility] [address] [facility],[place] [address] 12/09/2018 11:03:34 12/09/2018 11:21:54 Essential hypertension 32083496 I10 stable with exercise routine Systolic murmur 46931396 R01.1 very quiet Mixed hyperlipidemia 267 248530 E78.2 diet and exercise controlled Acute otitis media 71503 03 H66.91 perhaps very early will try azithro [id number] Reji Paul [facility] [address] [facility] [address] 04/14/2019 13:49:37 04/14/2019 14:11:49 Essential hypertension 94702330 I10 slightly elevated today Cough 29710252 R05 [id number] Reji Corona Paul [facility] [address] [facility] [address] 06/05/2019 11:42:35 06/05/2019 14:59:17 Contact dermatitis 59851102 L25.9 the pt was working in the [employer] and noticed afterwards he started developing a rash on his right hand that has since spread throughout his body will start on prednisone and see how he does [id number] Reji Paul [facility] [address] [facility] [address] 08/18/2019 11:37:43 08/18/2019 13:57:58 Adult health examination 873395815 Z00.00 no concerns today Active or passive immunization 139616309 Z23 no routine during pandemic [id number] Reji GrierMelinda Humberto [facility] [address] [facility] [address] 03/18/2020 13:40:52 03/18/2020 15:22:06 Gastroesophageal reflux disease 480656692 K21.9 sounds like GERD/gastr itis related causing his symptoms will start on bland diet and omeprazole and see if improvemen t after a week if no change will start with labs as we discussed Abdominal pain 41138913 R10.9 abd pain related to eating so sounds like a gastritis vs ulcer given his diet is high in acidity will cut out those components and see if he feels better Gastritis 7085096 K29.70 sounds like gastritis given symptoms will start on low acid diet and omeprazole if still happening may need to r/o ulcer [id number] Reji Paul [facility] [address] [facility] [address] 06/28/2020 15:28:21 06/28/2020 15:56:02 Contact dermatitis 71535582 L25.9 the pt was working in the [employer] and noticed afterwards he started developing a rash on his right arm and spreading to his left arm will start on prednisone and see how he does tolerates it well [id number] Reji Paul DO [facility] [address] [facility],[place] [address] 09/16/2020 15:43:43 09/16/2020 16:32:43 Pain of right shoulder joint 8833134538 7971361 M25.511 will take ibu as per my instructio ns Biceps tendinitis 574325 007 M75.21 [place] [id number] Reji Paul [facility] [address] [facility] [address] 12/27/2020 15:45:30 12/28/2020 08:40:31 Active or passive immunization 785726192 Z23 no routine during pandemic Adult heal th examination 612386728 Z00.00 no concerns today [id number] Reji Paul DO [facility] [address] [facility] [address] 04/18/2021 10:45:56 04/18/2021 14:30:59 Strain of neck muscle 603271982 S16.1XXA will trial OTC medication s and balms with prescripti on if needed Near syncope 668945196 R 55 ordered tests prior to this appt [id number] Reji Paul [facility] [address] [facility],[place] [address] 01/09/2022 13:26:48 01/09/2022 16:02:41 Adult health examination 572097423 Z00.00 no concerns todaywill let me know about seeing sleep medicine Gastroesop hageal reflux disease 759312173 K21.9 can trial omeprazole off for a few weeks to see if he still needs it Essential hypertension 56771505 I10 monitoring [id number] Reji Paul [facility] [address] [facility],[place] [address] 01/16/2023 13:24:35 01/16/2023 15:02:58 Adult health examination 627988757 Z00.00 no concerns todaywill let me know about seeing sleep medicine Multiple b enign melanocytic nevi 618277914 D22.5 will check his insurance Syncope 188678928 R55 will set up with lab work [id number] Reji Paul [facility] [address] [facility] [address] 04/15/2023 11:43:50 04/15/2023 15:39:22 Sore mouth 111348088 K13.79 will set up with nystatin swish and spit and send out wound culturewil l also have him switch his toothpaste that [id number] Reji Paul [facility] [address] [facility] [address] 07/02/2023 13:53:53 07/03/2023 09:16:31 Psoriasis 4364853 L40.8 will do a prednisone burstwill have him use triamcinol one for flare ups [id number] Reji Paul [facility] [address] [facility] [address] 10/14/2023 10:58:51 10/14/2023 12:00:00 Contact dermatitis caused by urushiol from [facility] liz 172069623 L23.7 will start on prednisone taper [id number] Reji Paul [facility] [address] [facility],[place] [address] 12/27/2023 13:53:31 12/27/2023 14:55:49 Depression screening 861962186 Z13.31 negative Pseudomona s aeruginosa folliculitis 304673534 B96.5 will start on cipro and with a hibiclens [id number] Reji Paul [facility] [address] [facility] [address] 01/27/2024 13:25:23 01/27/2024 14:52:38 Active or passive immunization 982732819 Z23 due for his flu shot and covid vaccine Adult [facility] th examination 239190932 Z00.00 no concerns todaywill let me know about seeing sleep medicine Depression screening 171 844757 Z13.31 negative [id number] Reji Paul [facility] [address] [facility] [address] 08/05/2024 11:50:29 08/05/2024 13:25:00 Renewal of prescription 215330510 Z76.0 stable Depression screening 171 504254 Z13.31 negative Essential hypertension 95661614 I10 restart low dose olmesartan [id number] Reji Paul [facility] [address] [facility],[place] [address] 08/19/2024 14:27:44 08/19/2024 15:44:10 Essential hypertension 06423062 I10 better home readingswi ll increase it to 30 mg, then 40 mg if still ranging in the 140-160sav erage around 130s/70s Gastro-eso phageal reflux disease with esophagitis 003041302 K21.00 5987580870 can trial omeprazole off for a few weeks to see if he still needs it [id number] Reji Paul [facility] [address] [facility],[place] [address] 09/02/2024 10:10:49 09/02/2024 16:05:21 Depression screening [id number] Z13.31 [id number] negative At low risk for fall 439 531927 Z91.81 [id number] low risk (score 0) Essential hypertension [id number] I10 BP excellent [id number] Reji Paul [facility] [address] [facility] [address],[place] [address] 10/19/2024 10:23:45 10/19/2024 11:12:04 Depression screening [id number] Z13.31 negative Chronic constipation 236 943451 K59.09 369111 recommende d miralax and fiber Seborrheic keratosis 394 197030 L82.1 136269 has his derm fu Psoriasis 6834472 L40.8 patch on the head and ankles [id number] Reji Paul [facility] [address] [facility] [address],[place] [address] 01/29/2025 14:02:05 01/29/2025 16:32:46 Depression screening [id number] Z13.31 negative General ex amination of patient 414068408 Z00.00 [id number] no concerns todaywill let me know about seeing sleep medicine Screening for malignant neoplasm of prostate 971737661 Z12.5 614000 Health Concerns Section Related Observation LastModified by Organization Detai ls LastModified Time None Recorded Concern Status LastModified by Organization Details LastModified Time None Recorded Advance Directives Directive None Recorded Payers Insurance Date Sequence Insurance Name Policy Number Policy Gonzalez Covered Member ID Gonzalez Member ID Guarantor Name 11/25/2017 2 [place] Shaan Sanofrd 01/26/2025 2 [place] 111 Shaan Sanford [id number] Shaan Sanford 01/26/2025 1 [place] [employer] Shaan Sanford [id number] Shaan Sanford Notes Date Note Type Note Provider Name a nd Address Organization Details Recorded Time 5 text/html ROS as noted in the HPI medication f/u the patient reports that he is having some blood pressure issuesthe patient had a colonoscopy and endoscopy last weekhis BP was 160/60 with first check according to patientthe patient reports that second reading was when he was unconscious, reading jumped up to 220/100 the patient denies chest pain, sob, headaches, vision changes, fever, chillsunusually high, typically has good BP in office around 120/80 - 130/80 the patient reports he has been on BP meds in the past, when he lived in the [place] area took some readings prior to his appt ranging around 130-150s/80srecommend ed restarting olmesartan 20 mg he was on previously which worked well for himlisinopril causes the dry cough in patient, cannot due ACEI meds GI is having patient elevated himself at bed time with a wedge otherwise MELBA EDWARDS [address] [facility], [place], [address], [facility] 08/05/2024 12:40:42 5 text/html ROS as noted in the HPI 2 week f/u HTN: today in the office the patient BP is 132/78 L arm sittingthe patient is doing well on the BP medication with no side effects and no adjustment of their medications needed today at the appointmentmike coley on medicationdenies chest pain, sob, ankle swelling, orthopnea, palpitations GERD: mild changes, inflammation, no medina's esophagus or precancerous findings on endoscopeneeds repeat colonoscopy in 7 years with [facility] GIrecommended PRN omeprazole 20 mg for flare ups and/or famotidine will increase to 30 mg and if needed bump up to 40 mgpatient has info to look into MELBA EDWARDS [address] [place], [address], [facility] 08/19/2024 14:57:25 5 text/html ROS as noted in the HPI f/u 2 week HTN: today in the office the patient BP is 128/86 L arm sitting the patient is doing well on the BP medication with no side effects and no adjustment of their medications needed today at the appointment well-controlled on medication denies chest pain, sob, ankle swelling, orthopnea, palpitations the patient is doing well on the medicationthe patient reports that he is not having side effects BP at home is also really well > 110-125/60-70s which is excellentno changes needed MELBA EDWARDS [address] [place], [address], [facility] 09/02/2024 10:51:34 5 text/html ROS as noted in the HPI f/u HTN HTN: today in the office the patient BP is 118/74 L arm sittingthe patient is doing well on the BP medication with no side effects and no adjustment of their medications needed today [facility] on medicationdenies chest pain, sob, ankle swelling, orthopnea, palpitations the patient has the Dermatology appt in Nov for the recurrent issues of rash, no effect with different topical treatmentsthe patient reports that he is having a mild flare upr.o dermatitis vs psoriasis constipation recommended miralax and fiber increasept will try this out and report back if this is effective MELBA EDWARDS [address] [place], [address], [facility] 10/19/2024 11:03:11 5 text/html Annual WellnessReported by PatientSocial/Behavio ral HistoryFor diet and nutrition, patient reportshealthy diet. For fracture risk, patient reportsno history of fractures,no recent explained fracture,no sudden unexplained fractures, andno previous musculoskeletal injuries. For physical activity, patient reportsexercises on a regular basis,recent increase in physical activity, andgood physical condition. For additional lifestyle factors, patient reportsno tobacco use,no alcohol intake, andstopped drinking alcohol.Mental Status:For depression risk, patient reportsnever feels sad, empty, or tearful,no loss of interest in activities,no significant changes in weight,no sleep disturbances or insomnia,no agitation,no loss of energy,no feelings of worthlessness or guilt,no thoughts of suicide,no history of depression, andno history of mood disorders.Functional AbilityFor hearing, patient reportsno loss of hearing. For vision, patient reportsno vision problems.ROS as noted in the HPI has f/u with derm in mid-februaryrash is doing better, they ruled it as eczema BP is excellent today on checkdoes have a cough, lingering from previous URI, not related to the medications would like routine PSA done needs annual blood work MELBA EDWARDS [address] [place], [address], [facility] 01/29/2025 15:00:32
--- OUTSIDE RECORDS SUMMARY | 2025-02-12 09:41 | XMS_ITS | Encounter Summary ---
Author Organization [facility] Address [address] [place] [id number] Phone Care Team Providers Care Metal Trades Instructor Name Role Phone Reji Paul Primary Care Provider [phone] Reason for Referral * Hospital - Outpatient - Closed Specialty Diagnoses / Procedures Referred By Harlan neves Referred To Contact Diagnoses Syncope and collapse Procedures Stress Test Exercise Tricia Maynard PA Phone: tel: fax: Referral ID Status Reason Start Date Expiration Date Visits Re quested Visits Authorized [id number] Closed 04/18/2021 04/18/2022 1 1 Encounter Details Date Type Department Care Team (Latest Contact Info) Description 04/18/2021 Transcribe Orders Virtual Department [address] [place] [address] Tricia Maynard PA [address] [place] [id number] Syncope and collapse (Primary Dx) Social History Tobacco Use Types [...] Description 03/18/2025 2:00 PM EST Office Visit [facility] [address] [place] [address] Unknown, Unknown, Caridad Jensen PA-C [address] [facility] [address] [place] [address] [email or web address] documented as of this encounter Results * MCT (Mobile Cardiac Telemetry) (05/31/2021 2:37 PM EDT) Anatomical Region Laterality Modality Heart Other Narrative 06/01/2021 7:28 AM EDT The predominant rhythm is normal sinus rhythm the minimum heart rate is 38 bpm there were episodes of blocked PACs seen. The average heart rate and max heart rate are essentially within normal limits. There were no long pauses there was no atrial fibrillation or flutter. There is no evidence of ventricular tachycardia on the study. Tricia REILLY CV CARDIAC SERVICES ORDERAB LES Final Result * US Carotid Duplex Complete (Bilateral) (04/27/2021 11:32 AM EST) Anatomical Region Laterality Modality Heart, Thoracic Vasculature, Neck Ultrasound 04/28/2021 10:0 7 AM EST Impressions 04/28/2021 10:32 AM EST No evidence of 50% or greater stenosis in the right or left internal carotid artery. Narrative 04/28/2021 10:32 AM EST US CAROTID DUPLEX COMPLETE (BILATERAL) TECHNIQUE: Ultrasound Carotid Duplex with color flow Doppler and spectral waveform Doppler. Arterial inflow was assessed. COMPARISON: None FINDINGS: Right: Small amount of mixed plaque in carotid bulb. ICA/CCA ratio: 1.28 Common carotid artery: Proximal: No significant stenosis. Distal: No significant stenosis. Internal carotid artery: Proximal: No significant stenosis. Mid: No significant stenosis. Distal: No significant stenosis. External carotid artery: No significant stenosis. Vertebral artery: Antegrade. Left: Small amount of mixed plaque in carotid bulb. IC/CCA ratio: 0.84 Common carotid artery: Proximal: No significant stenosis. Distal: No significant stenosis. Internal carotid artery: Proximal: No significant stenosis. Mid: No significant stenosis. Distal: No significant stenosis. External carotid artery: No significant stenosis. Vertebral artery: Antegrade. Right Peak Systolic Velocities: Proximal CCA: 127 cm/s Distal CCA: 96 cm/s Proximal ICA: 123 cm/s Mid ICA: 105 cm/s Distal ICA: 100 cm/s ECA: 196 cm/s Vertebral: 79 cm/s Right End Diastolic Velocities: Proximal CCA: 23 cm/s Distal CCA: 23 cm/s Proximal ICA: 28 cm/s Mid ICA: 28 cm/s Distal ICA: 31 cm/s ECA: 26 cm/s Vertebral: 16 cm/s Left Peak Systolic Velocities: Proximal CCA: 137 cm/s Distal CCA: 116 cm/s Proximal ICA: 80 cm/s Mid ICA: 98 cm/s Distal ICA: 96 cm/s ECA: 159 cm/s Vertebral: 72 cm/s Left End Diastolic Velocities: Proximal CCA: 30 cm/s Distal CCA: 27 cm/s Proximal ICA: 26 cm/s Mid ICA: 30 cm/s Distal ICA: 32 cm/s ECA: 32 cm/s Vertebral: 13 cm/s Abbreviations: CCA = Common Carotid Artery. ICA = Internal Carotid Artery. ECA = External Carotid Artery. Vert = Vertebral Artery. ICA/CCA ratio = maximal ICA PSV divided by the maximal CCA PSV. Procedure Note Wesly Ellis MD - 04/28/2021 US CAROTID DUPLEX COMPLETE (BILATERAL) TECHNIQUE: Ultrasound Carotid Duplex with color flow Doppler and spectralwaveform Doppler. Arterial inflow was assessed. COMPARISON: None FINDINGS: Right: Small amount of mixed plaque in carotid bulb. ICA/CCA ratio: 1.28 Common carotid artery: Proximal: No significant stenosis. Distal: No significant stenosis. Internal carotid artery: Proximal: No significant stenosis. Mid: No significant stenosis. Distal: No significant stenosis. External carotid artery: No significant stenosis. Vertebral artery: Antegrade. Left: Small amount of mixed plaque in carotid bulb. IC/CCA ratio: 0.84 Common carotid artery: Proximal: No significant stenosis. Distal: No significant stenosis. Internal carotid artery: Proximal: No significant stenosis. Mid: No significant stenosis. Distal: No significant stenosis. External carotid artery: No significant stenosis. Vertebral artery: Antegrade. Right Peak Systolic Velocities: Proximal CCA: 127 cm/s Distal CCA: 96 cm/s Proximal ICA: 123 cm/s Mid ICA: 105 cm/s Distal ICA: 100 cm/s ECA: 196 cm/s Vertebral: 79 cm/s Right End Diastolic Velocities: Proximal CCA: 23 cm/s Distal CCA: 23 cm/s Proximal ICA: 28 cm/s Mid ICA: 28 cm/s Distal ICA: 31 cm/s ECA: 26 cm/s Vertebral: 16 cm/s Left Peak Systolic Velocities: Proximal CCA: 137 cm/s Distal CCA: 116 cm/s Proximal ICA: 80 cm/s Mid ICA: 98 cm/s Distal ICA: 96 cm/s ECA: 159 cm/s Vertebral: 72 cm/s Left End Diastolic Velocities: Proximal CCA: 30 cm/s Distal CCA: 27 cm/s Proximal ICA: 26 cm/s Mid ICA: 30 cm/s Distal ICA: 32 cm/s ECA: 32 cm/s Vertebral: 13 cm/s Abbreviations: CCA = Common Carotid Artery. ICA = Internal Carotid Artery. ECA =External Carotid Artery. Vert = Vertebral Artery. ICA/CCA ratio = maximalICA PSV divided by the maximal CCA PSV. IMPRESSION: No evidence of 50% or greater stenosis in the right or left internalcarotid artery. Tricia REILLY CV US NEUROVASCULAR Final R esult * Stress Test Exercise (04/27/2021 11:00 AM EST) Max BP Systolic 170 mmHg [facility] Max BP Diastolic 64 mmHg [facility] Max HR 123 BPM [facility] Resting HR 61 BPM [facility] Resting BP Systolic 140 mmHg [facility] Resting BP Diastolic 82 mmHg [facility] Peak METS 11.5 METS [facility] Peak HR 123 BPM [facility] Anatomical Region Laterality Modality Heart Other 04/27/2021 10:0 3 AM EST 04/27/2021 10:52 AM EST Narrative 04/27/2021 12:44 PM EST Response to Stress The patient exercised for minutes seconds, achieving 11.5 METS at peak exercise. Baseline blood pressure was 140/82 mmHg, and baseline heart rate was 61 bpm. The patient achieved a peak heart rate of 123 bpm, which is% of their maximum predicted heart rate. REPORT- Pt exercised for 9:26 min on a KEATON protocol achieving 11.5 METS. Test terminated due to fatigue. Baseline resting HR was 59 bpm. Max heart rate achieved was 123 bpm (81% MPHR). 1. EKG - Baseline EKG showed sinus bradycardia with non-specific ST/T-wave abnormalities. During exercise, there were up to 1 mm horizontal to up-sloping ST depressions in the inferolateral leads. 2. SYMPTOMS - No chest pain. 3. EXERCISE PHYSIOLOGY - Good functional capacity for age. BP 132/80 at rest, 160/94 during exercise, and 146/64 upon discharge from stress lab. 4. ARRHYTHMIAS - Rare, isolated PACs and PVCs. Conclusion - Stress test with EKG changes suggestive of ischemia and without symptoms concerning for angina. Recommend repeat testing with nuclear imaging. Sangita Parker NP-C with Dr Castro. Tricia REILLY CV STRESS ORDERABLES Final Result documented in this encounter Visit Diagnoses Diagnosis Syncope and collapse- Primary Syncope and collapse Syncope and collapse Syncope and collapse documented in this encounter Care Teams Metal Trades Instructor Relationship Specialty Start Date End Date Reji Paul DO PCP - General Internal Medicine 12/19/18 documented as of this encounter Additional Source Comments The information contained in this document represents components of the legal health record. It is not the complete legal health record.[facility]
--- OUTSIDE RECORDS SUMMARY | 2025-02-12 09:41 | XMS_ITS | Encounter Summary ---
Author Organization [facility] Address [address] [place] [address] [place] [phone] Phone Care Team Providers Care Combat Systems Operator Name Role Phone Reji Paul DO Primary Care Provider [phone] Encounter Details Date Type Department Care Team (Late st Contact Info) Description 04/18/2021 Procedure Pass Non-Invasive Cardiology [address] [place] [address] Social History Tobacco Use Types Packs/Day Years [...] Description 03/18/2025 2:00 PM EST Office Visit [facility] [address] [place] [address] Unknown, Unknown, Caridad Jensen PA-C [address] [place] [id number] documented as of this encounter Visit Diagnoses Not on filedocumented in this encounter Care Teams Combat Systems Operator Relationship Specialty Start Date End Date Reji Paul DO PCP - General Internal Medicine 12/19/18 documented as of this encounter Additional Source Comments The information contained in this document represents components of the legal health record. It is not the complete legal health record.[facility]
--- OUTSIDE RECORDS SUMMARY | 2025-02-12 09:41 | XMS_ITS | Clinical Summary ---
Author Organization [facility] Address [address] [place] [id number] Phone Care Team Providers Care Sock Mender Name Role Phone Zena Contreras DO Primary Care Provider [phone] Allergies Active Allergy Reactions Criticality Noted Date Comments Lisinopril Cough 05/21/2020 Penicillins Rash Low 12/19/2018 Medications ibuprofen (ADVIL,MOTRIN) 200 MG tablet IBU-200 2 tablets 2 or 3 times a day Active potassium-calcium -magnes-manga [phone] mg PwPk potassium qd Active cholecalciferol, vitamin D3, (VITAMIN D3) 10 mcg (400 unit) capsule Vitamin D3 Active ZINC ORAL Take by mouth. Activ e therapeutic multivitamin tablet Take 1 tablet by mouth daily. Active omeprazole (PRILOSEC) 20 MG capsule Take 1 tablet by mouth daily. Active triamcinolone acetonide 0.1 % cream APPLY THIN LAYER TOPICALLY TO THE AFFECTED AREA TWICE DAILY Active magnesium oxide 250 mg (150 mg elemental) Tab Take 250 mg by mouth daily. Active ibuprofen (ADVIL,MOTRIN) 200 MG tablet Take 200 mg by mouth every 6 (six) hours as needed for pain (specific location in comments). Active Active Problems Problem Noted Date Diagnosed Date Erectile dysfunction 11/01/2017 Essential hypertension 11/01/2017 Assessment & Plan (07/18/2021 8:05 AM EDT): Well-controlled at the present time goal should be less 130 mmHg Hemorrhoids 11/01/2017 Herpes zoster 11/01/2017 Migraine 11/01/2017 Mixed hyperlipidemia 11/01/2017 Assessment & Plan (07/18/2021 8:06 AM EDT): LDL goal for his wrist should be less than 100 mg/dL Pneumonia 11/01/2017 Prostate nodule 11/01/2017 Systolic murmur 11/01/2017 Assessment & Plan (07/18/2021 8:06 AM EDT): Echo did not reveal any significant valvular heart disease Immunizations Immunization Administration Dates Next Due COVID-19 (Pre-12/31) Pfizer Vaccine, mRNA, PF Influenza High-Dose Quadrivalent Preservative Fr ee IM 12/05/2020 Influenza High-Dose Trivalent Preservative Free IM 12/24/2017 Influenza Quadrivalent w/ Preservative IM 2019,12/30/2018 Influenza Trivalent Adjuvanted Preservative free IM 12/30/2018,02/20/2017 Pneumococcal conjugate PCV13 06/05/2017 Pneumococcal polysaccharide PPSV23 06/14/2018 Td, unspecified formulation 06/18/2005 Zoster live 06/05/2017 Social History Tobacco Use Types Packs/Day Years Used Date Smoking Tobacco: Never Smokeless Tobacco: Never Alcohol Use Standard Drinks/Week Comments Yes 4 (1 standard drink = 0.6 oz pur e alcohol) 4 drinks per week Education Answer Date Recorded Are you interested in more education? Not on speedy e 07/06/2022 Are you concerned about learning? Not on file 07/06/2022 No 07/06/2022 No 07/06/2022 Digital Access Answer Date Recorded No 08/04/2022 No 08/04/2022 Reliable internet access at home? Not on file 08/04/2022 Device with a working camera? Not on file Intimate Partner Violence Answer Date R ecorded Denied Basic Needs Not on file 07/23/2024 In the past 12 months have y ou been in a relationship with a person who hurts, threatens, or tries to control you? No 07/23/2024 Worried food would run out Not on file 07/23 In the past 12 months have y ou been in a relationship with a person who hurts, threatens, or tries to control you? No 07/23/2024 Sex and Gender Information Value Date Recorded Sex Assigned at Not on file Legal Sex Male 9:59 PM EDT Gender Identity Not on file Sexual Orientation Not on file Last Filed Vital Signs Vital Sign Reading Time Taken Comments Blood Pressure 133/68 07/29/2024 2:25 PM EDT Pulse 49 07/29/2024 2:25 PM EDT Temperature 36 C (96.8 F) 07/29/2024 2:00 PM EDT Respiratory Rate 15 07/29/2024 2:25 PM EDT Oxygen Saturation 98% 07/29/2024 2:25 PM EDT Inhaled Oxygen Concentration - - Weight 64.9 kg (143 lb) 07/23/2024 9:44 AM EDT Height 167.6 cm (5' 6 ) 07/23/2024 9:44 AM EDT Body Mass Index 23.08 07/23/2024 9:44 AM EDT Plan of Treatment Upcoming Encounters Date Type Department Care Team ([facility] st Contact Info) Description 03/18/2025 2:00 PM EST Office Visit [facility] [address] [place] [phone] Unknown, Unknown, Caridad Jensen PA-C [address] [place] [phone] [email or web address] Health Maintenance Due Date Last Done Comments LIPID PANEL 1950 DEPRESSION SCREENING 1963 HEPATITIS C SCREENING 11/27/1969 COLOGUARD 11/27/1996 FIT TEST 11/27/1996 FOBT 11/27/1996 SIGMOIDOSCOPY 11/27/1996 VIRTUAL COLONOSCOPY 11/27/1996 ZOSTER VACCINES (2 of 3) 07/31/2017 06/05/2017 BLOOD PRESSURE 04/01/2024 09/30/2023 INFLUENZA VACCINE (#1) 2024 , 11/21/2021, 12/05/2020, Additional history exists COVID-19 VACCINE ( season) 2024 12/25/2021, 07/13/2021, 07/13/2021, Additional history exists RSV VACCINE (1 - 1-dose 75+ series) 11/27/2026 COLONOSCOPY 08/01/2031 07/29/2024 COLORECTAL CANCER SCREENING 08/01/2031 Adult Td,Tdap Booster 03/26/2032 03/26/2022, 006 PNEUMOCOCCAL VACCINES (50+ years) Completed 06/14/2018, 06/05/2017 SMOKING STATUS SCREENING (Once After 26 Yrs) Completed 07/29/2024 HEPATITIS A VACCINES Aged Out No long er eligible based on patient's age to complete this topic HIB VACCINES Aged Out No longer eligi ble based on patient's age to complete this topic MENINGOCOCCAL VACCINES (ACWY) Aged Out No longer eligible based on patient's age to complete this topic MENINGOCOCCAL VACCINES (B) Aged Out N o longer eligible based on patient's age to complete this topic Medical Devices Not on file Procedures Procedure Name Priority Date/Time Associated Diagnosis Comments ENDOSCOPY, COLON 07/29/2024 1:26 PM EDT from Last 3 Months or Most Recently Relevant to Health Maintenance Results * ENDOSCOPY, COLON (07/29/2024 1:26 PM EDT) Narrative Transcriptions Brian Pearl MD - 07/29/2024 1:26 PM EDT [facility] Patient Name: Shaan Sanford Attending MD:: BRIAN PEARL MD, Procedure Date: 07/29/2024 1:26 PM Date of : 1950 Age: 73 Admit Type: Outpatient Gender: Male Room: [place] [address] Referring MD: ZENA CONTRERAS DO Exam Type: Colonoscopy Indications: Screening in patient at increased risk: Colorectal cancer in father 60 or older, Last colonoscopy: November 2020 Medications: Monitored Anesthesia Care Procedure: Informed consent was obtained from the patientafter discussion of the indications, limitations, alternatives, benefits, and risks of the procedure. Risks specifically discussed include but are not limited to medication reactions, missed lesions, bleeding, perforation, or the need for emergent surgery. Throughout the procedure, the patient's blood pressure, pulse, end-tidal CO2, and oxygensaturations were monitored continuously. The Olympus pediatric variable [id number]-[id number] #5 was introduced through the anus and advanced tothe cecum, identified by the appendiceal orifice, ileocecal valve and palpation. The colonoscopy was performed without difficulty. The patient tolerated the procedure fairly well. The quality of the bowel preparation was evaluated using the BBPS (BostonBowel Preparation Scale) with scores of: Right Colon = 3, Transverse Colon = 3 and Left Colon = 3 (entiremucosa seen well with no residual staining, smallfragments of stool or opaque liquid). The total BBPS score equals 9. The ileocecal valve, appendiceal orifice, and rectum were photographed. Complications: No immediate complications. Estimated blood loss:None. Findings: The perianal and digital rectal examinations were normal. Pertinent negatives include normalsphincter tone. Retroflexion in the right colon was performed. The entire examined colon appeared normal on direct and retroflexion views. Impression: - The entire examined colon is normal on direct and retroflexion views. - No specimens collected. Recommendation: - Repeat colonoscopy in 7 years for screening purposes. Speak to your PCP regarding your elevated blood pressuremanagement. BRIAN PEARL MD 07/29/2024 2:02:19 PM This report has been signed electronically. Number of Addenda: 0 Note Initiated On: 07/29/2024 1:26 PM Procedure Code(s): --- Professional --- G0105, Colorectal cancer screening; colonoscopy on individual at high risk --- Technical --- G0105, Colorectal cancer screening; colonoscopy on individual at high risk Diagnosis Code(s): --- Professional --- Z80.0, Family history of malignant neoplasm of digestive organs --- Technical --- Z80.0, Family history of malignant neoplasm of digestive organs CPT copyright 2021 [employer]. All rights reserved. The codes documented in this report are preliminary and upon resourcing advisor reviewmay be revised to meet current compliance requirements. Procedure Date: 07/29/2024 1:26:32 PM [address] [place] [address] us Zena Cherrie Brownjim DO GI PROCEDURE ORDERABLES Final Re sult from Last 3 Months or Most Recently Relevant to Health Maintenance Insurance MEDICARE PART A & B [place] MEDICARE PART A & B [place] MEDICARE PART A & B [place] MEDICARE PART A & B [place] MEDICARE PART A & B [place] MEDICARE PART A & B [id number] [place] [address] MEDICARE PART A & B [place] MEDICARE PART A & B [place] MEDICARE PART A & B [place] Advance Directives For more information, please contact: [phone] (9AM - 5PM Yolanda/[facility], Saturday-Saturday) Documents on File Type Date Recorded Patient Valance Cutter Expl anation Healthcare Proxy 04/28/2021 1:58 PM Care Teams Sock Mender Relationship Specialty Start Date End Date Zena Contreras DO PCP - General Internal Medicine 12/19/18 Additional Source Comments The information contained in this document represents components of the legal health record. It is not the complete legal health record.[facility]
--- OUTSIDE RECORDS SUMMARY | 2025-02-12 09:41 | XMS_ITS | Encounter Summary ---
Author Organization [facility] Address [address] [place] [address] [place] [phone] Phone Care Team Providers Care Geodetic Surveyor Technologist Name Role Phone Reji Paul Primary Care Provider [phone] Encounter Details Date Type Department Care Team (Late st Contact Info) Description 07/29/2024 Procedure Pass [facility] Endoscopy Admitting Dept Virtual Department [address] [place] [address] Social History Tobacco Use Types Packs/Day Years [...] Description 03/18/2025 2:00 PM EST Office Visit [facility] [address] [place] [address] Unknown, Unknown, Caridad Jensen PA-C [address] [address] [email or web address] documented as of this encounter Visit Diagnoses Not on filedocumented in this encounter Care Teams Geodetic Surveyor Technologist Relationship Specialty Start Date End Date Reji Paul DO [email or web address] PCP - General Internal Medicine 12/19/18 documented as of this encounter Additional Source Comments The information contained in this document represents components of the legal health record. It is not the complete legal health record.[facility]
[2025-02-12 13:12] LABS: MANUAL DIFF FLAG NO
[2025-02-12 13:29] LABS: Hematocrit 47.0 % (42.0-52.0); Hemoglobin 16.2 g/dl (14.0-18.0); Imm Gran Abs Auto 0.03 X10*3/uL (0.00-0.03); Imm Gran Pct Auto 0.5 % (0.0-0.4); Lymphocytes Absolute Auto 1.3 X10*3/uL (1.2-4.9); Mean Corpuscular HGB Conc 34.5 g/dl (31.0-36.0); Mean Corpuscular Hemoglobin 30.1 pg (27.0-33.0); Mean Corpuscular Volume 87.4 fL (80.0-98.0); NRBC Abs Auto 0.000 X10*3/uL (0.0-0.012); NRBC Pct Auto 0.0 /100WBC (0.0-0.2); Platelet Count 222 X10*3/uL (160-400); Red Blood Count 5.38 X10*6/uL (4.60-5.80); White Blood Count 5.7 X10*3/uL (4.8-10.8)
[2025-02-12 14:45] LABS: Prostate Specific Antigen 1.95 ng/mL (<0.05-4.0)
[2025-02-12 17:32] LABS: Alanine Aminotransferase 31 U/L (0-40); Albumin Level 4.4 g/dL (3.5-5.0); Alkaline Phosphatase 71 U/L (39-117); Anion Gap 11 (12-20); Aspartate Amino Transferase 30 U/L (5-37); Blood Urea Nitrogen 12 mg/dL (9-16); Calcium 9.9 mg/dL (8.4-10.2); Carbon Dioxide 26 mmol/L (22-29); Chloride 106 mmol/L (96-108); Cholesterol 166 mg/dL (<200); Estimated Glomerular Filt Rate > 60; HDL Cholesterol 43 mg/dL (>40); Potassium 4.4 mmol/L (3.3-5.1); Sodium 139 mmol/L (135-145); Total Protein 6.9 g/dL (6.5-8.0); Triglycerides 100 mg/dL (<150)
== END 2025-02-12 09:05 | disposition home or self-care (01) ==
LOC: HO.MANLDS 09:04
PROVIDERS: Visit Provider Physician Assistant
DX: Z00.00 Encounter for general adult medical examination without abnormal findings (principal); Z12.5 Encounter for screening for malignant neoplasm of prostate; Z13.1 Encounter for screening for diabetes mellitus; Z13.6 Encounter for screening for cardiovascular disorders; Z13.0 Encounter for screening for diseases of the blood and blood-forming organs and certain disorders involving the immune mechanism
CPT/HCPCS: 36415; 80053; 80061; 83036; 84153; 85025